=== PATIENT | male | born 1965 | race African-American/Black ===

== ENCOUNTER 2017-06-13 10:09 | Outpatient (CLI) | payer OTHER ==
--- NOTE | 2017-06-13 10:34 | NUR ---
1025-HT 5'11, WT 429 LBS. 1030-DISCHARGED HOME AMBULATORY
== END 2017-06-13 10:30 | disposition home or self-care (01) ==
LOC: D.OPS 10:09
DX: Z02.71 Encounter for disability determination (principal)